=== PATIENT | female | born 1930 | race Caucasian/White ===

== ENCOUNTER 2018-04-06 15:10 | Emergency (ER) | payer BC ==
[~2018-04-06] VITALS: Ht 167.6 cm; Wt 79.4 kg
[~2018-04-06 15:10] MED LIST: AMLO10TA4 PO; AMLO5TAB7 PO; ASPI81TA50 PO; ATOR10TA60 PO; CARV3.12 PO; CLOP75TA PO; HYDR12.553 PO; LEVO250T25 PO; LOSA100T7 PO; METO-269 PO; MULT1TAB52 PO; OXYB5TAB7 PO; PANT40TA3 PO; POTA20LI14 PO; POTA20TA4 PO; VITA1CAP PO
[2018-04-06 16:09] LABS: BASO % 0 % (0-3); EOS # 0.2 x10^3/uL (0.0-0.7); EOS % 2 % (0-3); HEMATOCRIT 42.6 % (36.0-47.0); LYMPH # 3.1 x10^3/uL (1.0-4.8); LYMPH % 34 % (24-48); MEAN CORPUSCULAR HEMOGLOBIN 31 pg (25-35); MEAN CORPUSCULAR HGB CONC 35 g/dL (31-37); MEAN CORPUSCULAR VOLUME 88 fL (79-100); MONO # 0.6 x10^3/uL (0.0-1.1); MONO % 7 % (0-9); NEUT % 56 % (31-73); PLATELET COUNT 214 x10^3/uL (140-400); RED BLOOD COUNT 4.82 x10^6/uL (3.50-5.40); RED CELL DISTRIBUTION WIDTH 13.8 % (11.5-14.5); WHITE BLOOD COUNT 8.9 x10^3/uL (4.0-11.0)
[2018-04-06 16:18] LABS: CALCIUM 8.7 mg/dL (8.5-10.1); CREATININE 0.6 mg/dL (0.6-1.0); GFR 94.6; POTASSIUM 3.7 mmol/L (3.5-5.1)
[2018-04-06 16:23] LABS: ALBUMIN 3.6 g/dL (3.4-5.0); MAGNESIUM 2.1 mg/dL (1.8-2.4); TOTAL PROTEIN 7.3 g/dL (6.4-8.2)
--- NOTE | 2018-04-06 16:35 | RAD ---
RS Compliance Statement: One or more of the following individualized dose reduction techniques were utilized for this examination: 1. Automated exposure control 2. Adjustment of the mA and/or kV according to patient size 3. Use of iterative reconstruction technique CT HEAD WITHOUT CONTRAST History: DIZZY Comparison: MRI brain without contrast and CT head without contrast, March 13, 2015. Technique: Axial images are obtained of the head from the skull base through the vertex without IV contrast. Findings: No mass-effect, midline shift, extra-axial fluid collection, hemorrhage, or obvious acute infarction is identified. Basilar cisterns are patent. The ventricles and sulci are prominent, consistent with age-related cerebral atrophy. There is periventricular and subcortical white matter hypoattenuation. This is a nonspecific finding but is commonly due to chronic small vessel ischemic disease. Tiny old left thalamic lacunar infarct. The basilar artery is prominent but stable. Bone windows demonstrate no acute calvarial abnormality. The visualized paranasal sinuses are clear. Mastoid air cells are well aerated. IMPRESSION: No acute intracranial abnormality. Electronically signed by: Christopher Wray MD (04/06/2018 4:32 PM) [facility]
[2018-04-06 17:00] LABS: BILIRUBIN,URINE NEGATIVE (NEG); CLARITY,URINE CLEAR; COLOR,URINE YELLOW; NITRITE,URINE NEGATIVE (NEG); PROTEIN,URINE NEGATIVE (NEG-TRACE); UROBILINOGEN,URINE 0.2 mg/dL (0.2 mg/dL)
[2018-04-06 17:10] LABS: RBC,URINE 0 /HPF (0-2)
[2018-04-06 17:11] LABS: BACTERIA,URINE MODERATE /HPF (0-FEW); SQUAMOUS EPITHELIAL CELL,UR OCC /LPF; WBC,URINE OCC /HPF (0-4)
[2018-04-06] MEDS ORDERED: MECLIZINE HCL 12.5 MG TABLET. PO ONE (17:15)
--- NOTE | 2018-04-06 17:53 | EKG ---
[facility] [address] [place] [address] Test Date: 2018-04-06 Test Time: 16:26:48 Pat Name: SHARA MOYA Department: Room: Gender: Female Operating Room Surgical Technician: : [id number] Requested By: URMILA OHARA Order Number: [id number] Reading MD: Dread Leon Measurements Intervals [place] Rate: 75 P: 32 MO: 204 QRS: -15 QRSD: 84 T: 6 QT: 420 QTc: 471 Interpretive Statements SINUS RHYTHM LEFTWARD AXIS NON SPECIFIC T ABNORMALITY PROLONGED QT NON SPECIFIC ST DEPRESSION INFERIOR Q WAVE ABNORMAL ECG Compared to ECG 03/13/2015 10:43:49 T-wave abnormality now present Prolonged QT interval now present ST (T wave) deviation now present Electronically Signed On 04-10-2018 12:56:24 [employer]ING MACHINE OPERATOR by Dread Leon
[2018-04-06 18:00] VITALS: BP 174/83
[2018-04-06] MEDS ORDERED: MECL25TA3 PO (18:15)
--- NOTE | 2018-04-06 18:15 | PHYS DOC ---
Past Medical History Past Medical History: CVA, Hypertension Additional Past Medical Histor: LEFT SIDE RESIDUAL Past Surgical History: Cholecystectomy, Hysterectomy Alcohol Use: Occasionally Drug Use: None Adult General Chief Complaint Chief Complaint: DIZZY/LIGHT HEADED HPI HPI Patient is a 87 year old female who presents to the ED for evaluation of dizziness. Pt states that she noted significant dizziness around approx 10am. 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 she is at neurological baseline per two daughters at bedside. She is wheelchair dependant. She reports unable to tolerate sitting 2/2 dizziness. She is unable to describe whether or not it is vertiginous. No headache, no vision changes, ? nausea, no vomiting. She denies any previous episodes. Did not take morning meds this am. Review of Systems Review of Systems Constitutional: Denies fever or chills [] Eyes: Denies change in visual acuity, redness, or eye pain [] HENT: Denies nasal congestion or sore throat [] Respiratory: Denies cough or shortness of breath [] Cardiovascular: No additional information not addressed in HPI [] GI: Denies abdominal pain, nausea, vomiting, bloody stools or diarrhea [] : Denies dysuria or hematuria [] Musculoskeletal: Denies back pain or joint pain [] Integument: Denies rash or skin lesions [] Neurologic: Denies headache, focal weakness or sensory changes [] Endocrine: Denies polyuria or polydipsia [] All other systems were reviewed and found to be within normal limits, except as documented in this note. Current Medications Current Medications Current Medications Medications (Trade) Dose Ordered Sig/[facility] Start Time Stop Time Status Last Admin Dose Admin Meclizine HCl (Antivert) 25 mg 1X ONCE 04/06/18 17:15 04/06/18 17:16 DC 04/06/18 17:21 25 MG Allergies Allergies Allergies Coded Allergies Type Severity Reaction Last Updated Verified Penicillins Allergy Mild 06/16/15 Yes Physical Exam Physical Exam Constitutional: Well developed, well nourished, no acute distress, non-toxic appearance. [] HENT: Normocephalic, atraumatic, Eyes: PERRL, EOMI no discharge. [] Neck: Normal range of motion, no tenderness, supple, no stridor. [] Cardiovascular:Heart rate regular rhythm, no murmur [] Lungs & Thorax: Bilateral breath sounds clear to auscultation [] Abdomen: Bowel sounds normal, soft, no tenderness, no masses, no pulsatile masses. [] Skin: Warm, dry, no erythema, no rash. [] Back: No tenderness, no CVA tenderness. [] Extremities: No tenderness, no deformities Neurologic: Alert and oriented X 3, slight expressive aphasia, RUE with 4/5 strength, RLE with 3/5 strength, intact strength/sensation to LUE and LLE, CN II -XII intact bilateral. Psychologic: Affect normal, judgement normal, mood normal. [] Current Patient Data Vital Signs Vital Signs Date Time Temp Pulse Resp B/P (MAP) Pulse Ox O2 Delivery O2 Flow Rate FiO2 04/06/18 17:30 88 22 94 04/06/18 15:10 98.4 184/95 (124) Room Air 98.4 Lab Values Laboratory Tests Test 04/06/18 16:05 04/06/18 16:50 White Blood Count 8.9 x10^3/uL (4.0-11.0) Red Blood Count 4.82 x10^6/uL (3.50-5.40) Hemoglobin 15.0 g/dL (12.0-15.5) Hematocrit 42.6 % (36.0-47.0) Mean Corpuscular Volume 88 fL (79-100) Mean Corpuscular Hemoglobin 31 pg (25-35) Mean Corpuscular Hemoglobin Concent 35 g/dL (31-37) Red Cell Distribution Width 13.8 % (11.5-14.5) Platelet Count 214 x10^3/uL (140-400) Neutrophils (%) (Auto) 56 % (31-73) Lymphocytes (%) (Auto) 34 % (24-48) Monocytes (%) (Auto) 7 % (0-9) Eosinophils (%) (Auto) 2 % (0-3) Basophils (%) (Auto) 0 % (0-3) Neutrophils # (Auto) 5.0 x10^3uL (1.8-7.7) Lymphocytes # (Auto) 3.1 x10^3/uL (1.0-4.8) Monocytes # (Auto) 0.6 x10^3/uL (0.0-1.1) Eosinophils # (Auto) 0.2 x10^3/uL (0.0-0.7) Basophils # (Auto) 0.0 x10^3/uL (0.0-0.2) Sodium Level 142 mmol/L (136-145) Potassium Level 3.7 mmol/L (3.5-5.1) Chloride Level 104 mmol/L (98-107) Carbon Dioxide Level 27 mmol/L (21-32) Anion Gap 11 (6-14) Blood Urea Nitrogen 12 mg/dL (7-20) Creatinine 0.6 mg/dL (0.6-1.0) Estimated GFR (Cockcroft-Gault) 94.6 BUN/Creatinine Ratio 20 (6-20) Glucose Level 93 mg/dL (70-99) Calcium Level 8.7 mg/dL (8.5-10.1) Magnesium Level 2.1 mg/dL (1.8-2.4) Total Bilirubin 1.0 mg/dL (0.2-1.0) Aspartate Amino Transferase (AST) 16 U/L (15-37) Alanine Aminotransferase (ALT) 25 U/L (14-59) Alkaline Phosphatase 78 U/L (46-116) Troponin I Quantitative < 0.017 ng/mL (0.000-0.055) Total Protein 7.3 g/dL (6.4-8.2) Albumin 3.6 g/dL (3.4-5.0) Albumin/Globulin Ratio 1.0 (1.0-1.7) Lipase 115 U/L (73-393) Urine Collection Type Void Urine Color Yellow Urine Clarity Clear Urine pH 8.0 Urine Specific [place] 1.010 Urine Protein Negative mg/dL (NEG-TRACE) Urine Glucose (UA) Negative mg/dL (NEG) Urine Ketones (Stick) Negative mg/dL (NEG) Urine Blood Negative (NEG) Urine Nitrite Negative (NEG) Urine Bilirubin Negative (NEG) Urine Urobilinogen Dipstick 0.2 mg/dL (0.2 mg/dL) Urine Leukocyte Esterase Negative (NEG) Urine RBC 0 /HPF (0-2) Urine WBC Occ /HPF (0-4) Urine Squamous Epithelial Cells Occ /LPF Urine Bacteria Moderate /HPF (0-FEW) Urine Mucus Slight /LPF Laboratory Tests 04/06/18 16:05 Laboratory Tests 04/06/18 16:05 EKG EKG NSR: HR 75, no significant ST segment changes. [] Radiology/Procedures Radiology/Procedures CXR IMPRESSION: 1. Mild right infrahilar nodular opacity, possibly pulmonary vessel on end versus hilar mass. This can be further assessed by CT. 2. Otherwise, no radiographic evidence for acute cardiopulmonary process. Electronically signed by: Fredy Cook MD (04/06/2018 6:20 PM) [id number] [] CT Head IMPRESSION: No acute intracranial abnormality. Course & Med Decision Making Course & Med Decision Making Pertinent Labs and Imaging studies reviewed. (See chart for details) 1800: Patient reports resolved symptoms. She is sitting up in bed and eating and states that she feels at baseline. She has reassuring head CT with no acute findings. She also has no acute abnormalities indicating significant acute pathology on her labs or chest x-ray. Discussed the possible pathology of a cold CVA causing her dizziness but with results of this patient prefers to be discharged is declining offers of admission. Dr. Silverman her primary physician called to discuss her results. We reviewed her ER evaluation he agrees with plan for discharge. We also reviewed patient's urine and he prefers to not treat this. Patient denies any dysuria and this is a contaminated sample. She' ll be given an Rx for meclizine. ER return precautions given. Patient verbalized understanding. All questions answered. Dragon Disclaimer Dragon Disclaimer This electronic medical record was generated, in whole or in part, using a voice recognition dictation system. Departure Departure Impression: Primary Impression: Dizziness Disposition: 01 HOME, SELF-CARE Condition: IMPROVED Referrals: YUDY SILVERMAN MD (PCP) Patient Instructions: Dizziness Additional Instructions: Thank you for coming to [facility]. Please repeat the attached handouts. Please follow-up with your primary care physician. Return to the ER if your symptoms worsen or you have any other concerns. Scripts Meclizine Hcl (MECLIZINE HCL) 25 Mg Tablet 25 MG PO PRN TID PRN for DIZZINESS, #10 dizziness Prov: URMILA OHARA DO 04/06/18 URMILA OHARA DO Apr 06, 2018 18:15
--- NOTE | 2018-04-06 18:22 | RAD ---
EXAM: AP View of the chest DATE: 04/06/2018 3:46 PM INDICATION: Dizzy and short of breath COMPARISON: 03/16/2015 FINDINGS: The heart is not enlarged. Marked tortuosity of the aorta without scarring calcifications are seen, stable. No focal parenchymal airspace opacity. Mild right infrahilar nodular opacity, possibly pulmonary vessel on end versus hilar mass. This can be further assessed by CT. No pleural effusion or pneumothorax. IMPRESSION: 1. Mild right infrahilar nodular opacity, possibly pulmonary vessel on end versus hilar mass. This can be further assessed by CT. 2. Otherwise, no radiographic evidence for acute cardiopulmonary process. Electronically signed by: Fredy Cook MD (04/06/2018 6:20 PM) [id number]
== END 2018-04-06 18:40 | disposition home or self-care (01) ==
LOC: ER 15:10
DX: R42 Dizziness and giddiness (principal); R53.1 Weakness; R47.01 Aphasia; I10 Essential (primary) hypertension; Z86.73 Personal history of transient ischemic attack (TIA), and cerebral infarction without residual deficits; Z88.0 Allergy status to penicillin
CPT/HCPCS: 36415; 70450; 71045; 80053; 81001; 83690; 83735; 84484; 85025; 87086; 93005; 99285; J8597

== ENCOUNTER → 2018-04-11 | Outpatient (CLI) | payer BC ==
[2018-04-06 18:00] VITALS: BP 174/83
[~2018-04-11] MED LIST changes: +MECL25TA3 PO
--- NOTE | 2018-04-11 16:27 | RAD ---
Examination: CT chest without contrast HISTORY: History of hilar mass on chest x-ray COMPARISON: None available Technique: Axial CT images of chest were performed without contrast. Coronal and sagittal reformats are performed Exposure: One or more of the following individualized dose reduction techniques were utilized for this examination: 1. Automated exposure control 2. Adjustment of the mA and/or kV according to patient size 3. Use of iterative reconstruction technique FINDINGS: The central airways are patent. The visualized thyroid gland grossly appears unremarkable. Moderate cardiomegaly. Moderate aortic atherosclerosis. Diffuse coronary artery calcifications identified. Trace pericardial effusion identified. No radiologically significant mediastinal lymphadenopathy. Mild bibasilar lung atelectasis. No evidence of pleural effusion or pneumothorax. No evidence of obvious hilar mass identified. However examination is limited without IV contrast. There is a 4.2 x 4.4 cm mass identified abutting the left adrenal gland. This measures 9 Hounsfield units. The visualized noncontrasted liver, spleen, right adrenal grossly appears unremarkable. Moderate compression changes of T7, T9 vertebral bodies. Mild compression changes of T10 vertebral body. Moderate degenerative changes thoracic spine. IMPRESSION: 1. No obvious evidence of hilar mass identified, however examination limited due to lack of IV contrast. 2. A 4.4 cm left adrenal mass identified. Given the Hounsfield units of 9, this could be adrenal adenoma. Recommend follow-up adrenal CT protocol. If contrast can't be given MRI can be considered if clinically feasible. 3. Age indeterminate compression changes of midthoracic vertebral bodies. Electronically signed by: Nathan Best MD (04/11/2018 4:24 PM) [place] [id number]
== END | disposition home or self-care (01) ==
LOC: CT 12:01
PROVIDERS: ATTEND Internal Medicine
DX: E27.8 Other specified disorders of adrenal gland (principal); M51.34 Other intervertebral disc degeneration, thoracic region; I70.0 Atherosclerosis of aorta; I51.7 Cardiomegaly
CPT/HCPCS: 71250

== ENCOUNTER → 2018-10-19 | Outpatient (CLI) | payer BC ==
[~2018-10-19] MED LIST changes: +AMLO5TAB10 PO; -AMLO5TAB7 PO; +LOSA100T14 PO; -LOSA100T7 PO
--- NOTE | 2018-10-19 10:55 | RAD ---
CT ABDOMEN WO CONTRAST dated 10/19/2018 10:30 AM Indication: Evaluate left adrenal mass... Comparison: Comparison made to chest CT dated 04/11/2018. Technique: Contiguous axial imaging the abdomen performed without the administration of intravenous contrast. One or more of the following individualized dose reduction techniques were utilized for this examination: 1. Automated exposure control 2. Adjustment of the mA and/or kV according to patient size 3. Use of iterative reconstruction technique Findings: Again noted is a solid heterogeneous mass at the left adrenal gland that measures up to 4.5 cm in size. Average Hounsfield value of 15. Lesion has not significantly changed in size or appearance compared to prior exam. Right adrenal gland is unremarkable. Solid abdominal viscera not well evaluated in the absence of contrast material. Low-density focus within the junction of the right and left lobe liver laterally on image 68 is unchanged from prior study. There is also a tiny low-density focus in the left lobe, unchanged. Low-density focus at the hepatic dome is stable. Gallbladder is surgically absent. Spleen is normal in size. Pancreas unremarkable. Kidneys are stable. No hydronephrosis. There is a low-density focus at the upper pole right kidney, unchanged. Mild pelvic caliectasis on the left, unchanged. Unopacified GI tract normal in caliber and contour. No focal bowel wall thickening. No inflammatory stranding in the mesentery. Bone windows show no acute findings. There are wedge compression deformities of T7, T9 and T10, unchanged. Multilevel spondylosis. Limited images of lung bases show bibasilar scar or atelectasis with diffuse bronchial wall thickening, unchanged. Small pericardial effusion, unchanged. Coronary artery calcifications with aortic and mitral valve calcification. IMPRESSION: 1. No significant interval change in left adrenal mass. 2. A couple of vague low-density foci scattered throughout the liver that are indeterminate but also unchanged. 3. Remote thoracic wedge compression fractures, similar to prior study. 4. Small pericardial effusion, unchanged. Electronically signed by: Kahlil Gutierrez MD (10/19/2018 10:52 AM) [id number]
== END | disposition home or self-care (01) ==
LOC: CT 10:07
PROVIDERS: ATTEND Internal Medicine
DX: E27.8 Other specified disorders of adrenal gland (principal); N28.89 Other specified disorders of kidney and ureter; I31.3 Pericardial effusion (noninflammatory); I08.0 Rheumatic disorders of both mitral and aortic valves; Z90.49 Acquired absence of other specified parts of digestive tract
CPT/HCPCS: 74150